=== PATIENT | female | born 1990 | race Caucasian/White ===

== ENCOUNTER 2022-01-22 18:11 | Emergency (ER) | payer OTHER ==
[~2022-01-22] VITALS: Ht 175.3 cm; Wt 119.9 kg
[2022-01-22] MEDS ORDERED: IBUPROFEN 800 MG TAB PO ONE (19:50)
[2022-01-22] MEDS ORDERED: physical therapy (20:55)
[2022-01-22 21:22] VITALS: BP 136/74
== END 2022-01-22 21:23 | disposition home or self-care (01) ==
LOC: M ED 18:11
DX: R10.2 Pelvic and perineal pain (principal); K59.00 Constipation, unspecified; S76.019A Strain of muscle, fascia and tendon of unspecified hip, initial encounter; E28.2 Polycystic ovarian syndrome; Y92.9 Unspecified place or not applicable; Y93.9 Activity, unspecified; Y99.9 Unspecified external cause status